=== PATIENT | female | born 2005 | race Caucasian/White ===

== ENCOUNTER 2024-08-07 17:26 | Emergency (ER) | payer BC, SELFPAY ==
[2024-08-07 17:36] VITALS: BP 113/74; PULSE 90; RESP 18; TEMP 36.6; O2SAT 100
--- NOTE | 2024-08-07 17:56 | ED.GENADULT ---
HPI - General Adult General Chief complaint: Dental/Oral Stated complaint: needs work note/tooth pain Source: patient Mode of arrival: ambulatory Limitations: no limitations History of Present Illness HPI narrative: Patient presents requesting a note to excuse her from work today. She woke up this morning with left upper dental pain which was causing ?migraine?. She called in sick to work. She states that her dental pain has improved as has her migraine. She is not looking for therapy for either of those complaints. She would simply like a note to excuse her from work. Related Data Home Medications Medication Instructions Recorded Confirmed No Home Medications 08/07/24 08/07/24 Allergies Allergy/AdvReac Type Severity Reaction Status Date / Time No Known Allergies Allergy Verified 08/07/24 17:43 Review of Systems Review of Systems: CONSTITUTIONAL: Denies fever, chills, or sweats. EYES: Denies visual changes, redness, or discharge. ENT: Reports left upper dental pain earlier, now resolved. Denies rhinorrhea, congestion, sore throat, or otalgia. CARDIOVASCULAR: Denies chest pain, palpitations, or edema. RESPIRATORY: Denies cough or dyspnea. GASTROINTESTINAL: Denies abdominal pain, nausea, vomiting, or diarrhea. GENITOURINARY: Denies dysuria or hematuria. SKIN: Denies rash or itching. MUSCULOSKELETAL: Denies back pain, joint pain, or myalgia. NEUROLOGIC: Reports headache earlier, now resolved. Denies numbness, dizziness, or weakness. PSYCHIATRIC: Denies anxiety or depression. PMFSH Past Medical History Medical History No pertinent past medical history Surgical History Surgical History No pertinent past surgical history Family History Family History Mother Family history non-contributory Social History Social History Substance use: never Gender identity (if verbalized by the patient): Female Spiritual care concerns: No Exam Narrative: GENERAL: Well-appearing, well-nourished, and in no acute distress. HEAD: Normocephalic, atraumatic. EYES: PERRLA and EOMI. ENT: Nares clear, no rhinorrhea or epistaxis. Mucous membranes moist. Oropharynx without tonsillar hypertrophy exudate or other lesions. Bilateral TMs pearly mendes nonbulging NECK: Supple. No adenopathy or masses. No carotid bruits or JVD CHEST: Clear to auscultation. No respiratory distress. No wheezes rales or rhonchi HEART: Regular rate and rhythm. No murmur heard. Normal peripheral pulses. ABDOMEN: Soft, nontender, nondistended, normal active bowel sounds. EXTREMITIES: Normal range of motion. No edema. SKIN: Warm, dry, no rash. NEURO: No focal deficits. Alert and oriented x3. PSYCH: Normal mood and affect. Course Course Emergency Course: This is a 18-year-old female who presented to obtain a note to excuse her from work today. She states her physical complaints have resolved. She is provided with a note and she should follow-up with her primary care provider. Patient in agreement with plan of care. Level of Care: Express Care Visit Vital Signs Vital signs: Vital Signs Temperature 36.6 C 08/07/24 17:36 Pulse Rate 90 08/07/24 17:36 Respiratory Rate 18 08/07/24 17:36 Blood Pressure 113/74 08/07/24 17:36 Pulse Oximetry 100 08/07/24 17:36 Oxygen Delivery Room Air 08/07/24 17:36 Temperature 36.6 C 08/07/24 17:36 Pulse Rate 90 08/07/24 17:36 Respiratory Rate 18 08/07/24 17:36 Blood Pressure 113/74 08/07/24 17:36 Pulse Oximetry 100 08/07/24 17:36 Oxygen Delivery Room Air 08/07/24 17:36 Medical Decision Making Vital Signs Vital Signs: Vital Signs Temperature 36.6 C 08/07/24 17:36 Pulse Rate 90 08/07/24 17:36 Respiratory Rate 18 08/07/24 17:36 Blood Pressure 113/74 08/07/24 17:36 Pulse Oximetry 100 08/07/24 17:36 Oxygen Delivery Room Air 08/07/24 17:36 Temperature 36.6 C 08/07/24 17:36 Pulse Rate 90 08/07/24 17:36 Respiratory Rate 18 08/07/24 17:36 Blood Pressure 113/74 08/07/24 17:36 Pulse Oximetry 100 08/07/24 17:36 Oxygen Delivery Room Air 08/07/24 17:36 Discharge Plan Discharge Clinical Impression: Encounter to obtain excuse from work Patient Disposition: Home, Self-Care Condition: Stable Instructions: Antibiotic Form, Toothache (ED) Patient Language: Trinidadian Prescriptions: No Action No Home Medications Follow-up/Referrals: Yogi Welch MD [Physician] - Stand Alone Forms: Work/School Release IP Time of Disposition: 17:56
== END 2024-08-07 18:00 | disposition home or self-care (01) ==
PROVIDERS: Emergency Provider Nurse Practitioner
DX: Z02.79 Encounter for issue of other medical certificate (principal)
CPT/HCPCS: 99202; G0463

== ENCOUNTER 2025-03-06 17:41 | Emergency (ER) | payer BC, SELFPAY ==
--- OUTSIDE RECORDS SUMMARY | 2025-03-06 17:48 | XMS_ITS | Referral Summary ---
Author Organization [address] Address [address] [place] [address] Care Team Providers Care Yard Goods Salesperson Name Role Phone Mana Swanson NP Primary Care Provider [phone] Sam Brannon MD Unavailable [phone] Allergies No known active allergies Medications docusate sodium (COLACE) 100 mg capsuleIndicati ons:constipatio n,Stool Softener Take 1 capsule (100 mg total) by mouth 2 (two) times a day as needed for constipation 30 capsule 1 4 Active ibuprofen (ADVIL,MOTRIN) 600 mg tabletIndicatio ns:Cramps Take 1 tablet (600 mg total) by mouth every 6 (six) hours as needed for pain 30 tablet 4 Active vit-iron fum-folic ac 27 mg iron- 800 mcg tabletIndicatio ns:Vitamin Deficiency Prevention Take 1 tablet by mouth daily 30 tablet 1 4 Active Active Problems Problem Noted Date Diagnosed Date Encounter for elective induction of labor 2022 37 weeks gestation of 09/20/2023 Social History Tobacco Use Types Packs/Day Years Used Date Smoking Tobacco: Never Passive Smoke Exposure: Never Smokeless Tobacco: Never Tobacco Cessation:Counseling Given: No [facility] Utilities Answer Date Recorded In the past 12 months has e [employer], gas, oil, or water company threatened to shut off services in your home? No 09/23/2023 Humiliation, Afraid, Rape, and Kick questionnair e Answer Date Recorded Within the last year, have y ou been afraid of your partner or ex-partner? No 09/23/2023 Within the last year, have y ou been humiliated or emotionally abused in other ways by your partner or ex-partner? No Within the last year, have y ou been kicked, hit, slapped, or otherwise physically hurt by your partner or ex-partner? No 09/23/2023 Within the last year, have y ou been raped or forced to have any kind of sexual activity by your partner or ex-partner? No 09/23/2023 Social Connection and Isolat ion Panel [NHANES] Answer Date Recorded In a typical week, how many times do you talk on the phone with family, friends, or neighbors? More than three times a week 09/23/2023 How often do you get togethe r with friends or relatives? Once a week 09/23/2023 How often do you attend chur ch or islam services? Never 09/23/2023 Do you belong to any clubs o r organizations such as mormonism groups, unions, fraternal or athletic groups, or school groups? No 09/23/2023 How often do you attend meet ings of the clubs or organizations you belong to? Never 09/23/2023 Are you , , di vorced, , never , or living with a partner? Never 09/23/2023 AUDIT-C Answer Date Recorded Q1: How often do you have a drink containing alcohol? Never 09/23/2023 Q2: How many drinks containi ng alcohol do you have on a typical day when you are drinking? Patient does not drink Q3: How often do you have si x or more drinks on one occasion? Never 09/23/2023 Overall Financial Resource Strain (CARDIA) Answe r Date Recorded How hard is it for you to pa y for the very basics like food, housing, medical care, and heating? Not hard at all 09/23/2023 PHQ-2 Answer Date Recorded PHQ-2 Total Score 0 09/23/2023 [facility] - Occupational Stress Questionnaire Answer Date Recorded Do you feel stress - tense, restless, nervous, or anxious, or unable to sleep at night because your mind is troubled all the time - these days? Not at all 09/23/2023 Exercise Vital Sign Answer Date Recorde d On average, how many days pe r week do you engage in moderate to strenuous exercise (like a brisk walk)? 3 days 09/23/2023 On average, how many minutes do you engage in exercise at this level? 40 min 09/23/2023 Hunger Vital Sign Answer Date Recorded Within the past 12 months, y ou worried that your food would run out before you got the money to buy more. Never true 09/23/19 24 Within the past 12 months, t he food you bought just didn't last and you didn't have money to get more. Never true 09/23/2023 PRAPARE - Transportation Answer Date Re corded In the past 12 months, has l ack of transportation kept you from medical appointments or from getting medications? No 10/2023 In the past 12 months, has l ack of transportation kept you from meetings, work, or from getting things needed for daily living? No 09/23/2023 Housing Stability Vital Sign Answer Kevin e Recorded In the last 12 months, was t here a time when you were not able to pay the mortgage or rent on time? No 09/23/2023 In the last 12 months, how many places have you lived? 1 09/23/2023 In the last 12 months, was t here a time when you did not have a steady place to sleep or slept in a long-term (including now)? No 09/23/2023 [place] Depression Scale Answer Date Recorded [place] Depression Scale Total 0 09/23/2023 The thought of harming myself has occurred to me . Never 09/23/2023 Personal Safety Answer Date Recorded Have you ever been in or are you currently in a harmful physical or emotional relationship or is someone making you feel afraid or unsafe? Denies 09/20/2023 Comments No Sex and Gender Information Value Date Recorded Sex Assigned at Not on file Legal Sex Female 2:47 PM CDT Gender Identity Not on file Sexual Orientation Not on file Last Filed Vital Signs Vital Sign Reading Time Taken Comments Blood Pressure 117/83 09/23/2023 4:43 PM SODA CLERK Pulse 98 09/23/2023 4:43 PM SODA CLERK Temperature 36.8 C (98.3 F) 09/23/2023 4:43 PM SODA CLERK Respiratory Rate 16 09/23/2023 4:43 PM SODA CLERK Oxygen Saturation 99% 09/22/2023 10:00 PM SODA CLERK Inhaled Oxygen Concentration - - Weight 78.9 kg (174 lb) 08/13/2023 11:14 AM SODA CLERK Height 165.1 cm (5' 5) 08/13/2023 11:14 AM SODA CLERK Body Mass Index 28.96 08/13/2023 11:14 AM SODA CLERK Plan of Treatment Not on file Insurance [facility] PLAN [facility] Advance Directives For more information, please contact: [phone] * Full Code (Latest Code Status on File) Date Activated Date Inactivated Comments 09/21/2023 2:56 AM 09/23/2023 10:28 PM Full CPR in case of cardiopulmonary arrest * Full Code Date Activated Date Inactivated Comments 09/21/2023 2:55 AM 09/21/2023 2:56 AM * Full Code Date Activated Date Inactivated Comments 09/20/2023 5:35 PM 09/21/2023 2:55 AM Full CPR i n case of cardiopulmonary arrest Care Teams Yard Goods Salesperson Relationship Specialty Start Date End Date Mana Swanson NP [address] [place] [address] PCP - General Nurse Practitioner 04/03/23 Sam Brannon MD [address] [place] [address] [address] [place] [address] Product Accountant Obstetrics and Gynecology 09/23/23
--- OUTSIDE RECORDS SUMMARY | 2025-03-06 17:48 | XMS_ITS | Clinical Summary ---
Author Organization [address] Address [address] [place] [address] Care Team Providers Care Wrapper Stitcher Name Role Phone Mana Swanson NP Primary Care Provider [phone] Sam Brannon MD Unavailable [phone] Allergies No known active allergies Medications docusate [...] Smokeless Tobacco: Never Tobacco Cessation:Counseling Given: No [facility] Utilities Answer Date Recorded In the past 12 months has e [employer], gas, oil, or water company threatened to [...] often do you attend chur ch or muslim services? Never 09/23/2023 Do you belong to any clubs o r organizations such as hindu groups, unions, fraternal or athletic groups, or [...] Date Recorded PHQ-2 Total Score 0 09/23/2023 [facility] - Occupational Stress [...] place to sleep or slept in a fci (including now)? No 09/23/2023 [place] Depression Scale Answer Date Recorded [place] Depression Scale Total 0 09/23/2023 The thought [...] on file Sexual Orientation Not on file Obstetrics History Para Term AB IAB SAB Ectopic Multiple Livin g Live Births 1 1 1 0 1 1 Date Outcome GA Total Labor Labor/2nd/3rd Weight Sex Type Anes PTL Jonna A1 A5 Name Clin 2022 Term 37w 6d 5h 41m 4h 55m/0h 44m/0h 02m 3.317 kg (7 lb 5 oz) M Vagina l Epidur al N Livin g 8 9 Jason Yesier o [place], [place] zamora MD Complications:None Delivery Location:[facility] Fac[facility]y ([facility]) Last Filed Vital Signs Vital Sign Reading Time Taken Comments Blood Pressure 117/83 09/23/2023 4:43 PM BELL CLERK Pulse 98 09/23/2023 4:43 PM BELL CLERK Temperature 36.8 C (98.3 F) 09/23/2023 4:43 PM BELL CLERK Respiratory Rate 16 09/23/2023 4:43 PM BELL CLERK Oxygen Saturation 99% 09/22/2023 10:00 PM BELL CLERK Inhaled Oxygen Concentration - - Weight 78.9 kg (174 lb) 08/13/2023 11:14 AM BELL CLERK Height 165.1 cm (5' 5) 08/13/2023 11:14 AM BELL CLERK Body Mass Index 28.96 08/13/2023 11:14 AM BELL CLERK Plan of Treatment Health Maintenance Due Date Last Done Comments Chlamydia and Gonorrhea (GC/ CT) Screening 2004 Hepatitis C Screening 2004 Meningococcal B Vaccine (2 o f 2 - Bexsero SCDM 2-dose series) 11/01/2021 05/01/2021 Regular Well Visit/Exam 18-64 2022 Depression Screening 09/23/2024 09/23/2023, 08/13/2023, 08/13/2023, Additional history exists Influenza Vaccine (Season Ended) 2025 DTaP/Tdap/Td Vaccine (7 - Td or Tdap) 05/21/2029 05/21/2019, 12/16/2008, 05/11/2007, Additional history exists Hepatitis B Screening Completed 06/16/2006 , 05/16/2006, 11/25/2005, Additional history exists Pneumococcal vaccine <65 Completed 006, 05/16/2006, 11/25/2005, Additional history exists Varicella Vaccines Completed 06/16/2006, 11/25/2005 HPV Vaccines Completed 05/01/2021, 05/21/2019 Meningococcal Vaccine Completed 05/01/2021, 019 Insurance [facility] PLAN [place] [id number] Advance Directives For more information, please contact: [phone] * Full Code (Latest Code Status on [...] n case of cardiopulmonary arrest Care Teams Wrapper Stitcher Relationship Specialty Start Date End Date Mana Swanson NP [address] [place] [address] [address] [place] [address] PCP - General Nurse Practitioner 04/03/23 Sam Brannon MD [address] [place] [address] [address] [place] [address] Section Plotter Operator Obstetrics and Gynecology 09/23/23
[2025-03-06 17:52] VITALS: BP 110/70; PULSE 91; RESP 20; TEMP 36.5; O2SAT 100
--- OUTSIDE RECORDS SUMMARY | 2025-03-06 17:52 | XMS_ITS | Clinical Summary ---
Author Organization [facility] Address [address] [place] [address] Phone Care Team Providers Care Information Manager Name Role Phone Provider, None Primary Care Provider Unavailabl e Allergies No known active allergies Medications naproxen (NAPROSYN) 500 MG Tablet Take 1 Tablet by mouth 2 times daily as needed for Moderate or more severe pain. 20 Tablet 03/01/2025 Active Encounters Date Type Department Care Team Description 03/01/2025 7:22 AM CDT - 03/01/2025 8:54 AM CDT Emergency [facility] Emergency [address] [place] [address] Casey Arreguin DO Chest pain Discharge Disposition: Discharged to home or Selfcare 03/01/2025 Travel from Last 3 Months Social History Tobacco Use Types Packs/Day Years Used Date Smoking Tobacco: Never Smokeless Tobacco: Never Tobacco Cessation:Counseling Given: Not Answered Comments Unknown Sex and Gender Information Value Date Recorded Sex Assigned at Not on file Legal Sex Female 8:52 PM CDT Gender Identity Not on file Sexual Orientation Not on file Last Filed Vital Signs Vital Sign Reading Time Taken Comments Blood Pressure 119/78 03/01/2025 8:45 AM CDT Pulse 78 03/01/2025 8:45 AM CDT Temperature 36.9 C (98.5 F) 03/01/2025 7:25 AM CDT Respiratory Rate 21 03/01/2025 8:45 AM CDT Oxygen Saturation 100% 03/01/2025 8:45 AM CDT Inhaled Oxygen Concentration - - Weight 78.5 kg (173 lb) 03/01/2025 7:25 AM CDT Height 160 cm (5' 3) 03/01/2025 7:25 AM CDT Body Mass Index 30.65 03/01/2025 7:25 AM CDT Plan of Treatment Health Maintenance Due Date Last Done Comments Hepatitis C Virus (HCV) Screening 2004 Meningococcal B Immunization (2 of 2 - Bexsero SCDM 2-dose series) 11/01/2021 05/01/2021 SARS-COV-2 Immunization ( - season) 2024 Influenza Immunization (Season Ended) 2025 Respiratory Syncytial Virus (RSV) Immunization (Adult) (1 - 1-dose 75+ series) 2079 Hepatitis B Immunization Completed 006, 11/25/2005, 01/15/2005, Additional history exists Pneumococcal Immunization Combined Aged Out 06/16/2006, 05/16/2006, 11/25/2005, Additional history exists No longer eligible based on patient's age to complete this topic TdaP Immunization Completed 05/21/2019 Human Papillomavirus (HPV) Immunization Completed 05/01/2021, 05/21/2019 Meningococcal Immunization (ACWY) Completed 05/01/2021, 05/21/2019 Rotavirus Immunization Aged Out No lo nger eligible based on patient's age to complete this topic Procedures Procedure Name Priority Date/Time Associated Diagnosis Comments XR CHEST SINGLE VIEW PORTABLE STAT 03/01/2025 7:44 AM CDT GOLD TOP TUBE STAT 03/01/2025 7:37 AM CDT BLUE TOP TUBE STAT 03/01/2025 7:37 AM CDT CBC WITH AUTO DIFFERENTIAL STAT 03/01/2025 7:37 AM CDT EXTRA TUBES STAT 03/01/2025 7:37 AM CDT TROPONIN I, HIGH SENSITIVITY (HSTRP) STAT 03/01/2025 7:37 AM CDT COMPLETE BLOOD COUNT (CBC) WITH DIFF STAT 03/01/2025 7:37 AM CDT CMP (COMPREHENSIVE METABOLIC PANEL) STAT 03/01/2025 7:37 AM CDT EKG 12 LEAD STAT 03/01/2025 7:23 AM CDT EKG SCAN 03/01/2025 12:00 AM CDT from Last 3 Months Results * XR CHEST SINGLE VIEW PORTABLE (03/01/2025 7:44 AM CDT) Anatomical Region Laterality Modality Chest N/A Digital Radiogra phy 03/01/2025 7:59 AM CDT Impressions 03/01/2025 8:02 AM CDT IMPRESSION: No acute cardiopulmonary abnormality. Narrative 03/01/2025 8:02 AM CDT EXAM DESCRIPTION: XR CHEST SINGLE VIEW PORTABLE REASON FOR STUDY: sob-mid chest pain radiating to right side and shoulder x 3 months TECHNIQUE: AP radiographic view(s) of the chest. COMPARISON: None FINDINGS: LUNGS: No focal opacity, pleural effusion, or pneumothorax. HEART/MEDIASTINUM: Cardiac silhouette normal in size. Mediastinal and hilar contours appear normal. LINES/TUBES: None. BONES: No acute osseous abnormality. THIS IS AN ELECTRONICALLY VERIFIED FINAL REPORT 03/01/2025 7:59 AM - Electronically signed by Rayne Hester M.D. TW: TW Report ID: [id number] Reading Location: [id number] Procedure Note Rayne Hester MD - 03/01/2025 EXAM DESCRIPTION: XR CHEST SINGLE VIEW PORTABLE REASON FOR STUDY: sob-mid chest pain radiating to right side and shoulder x 3 months TECHNIQUE: AP radiographic view(s) of the chest. COMPARISON: None FINDINGS: LUNGS: No focal opacity, pleural effusion, or pneumothorax. HEART/MEDIASTINUM: Cardiac silhouette normal in size. Mediastinal and hilar contours appear normal. LINES/TUBES: None. BONES: No acute osseous abnormality. THIS IS AN ELECTRONICALLY VERIFIED FINAL REPORT 03/01/2025 7:59 AM - Electronically signed by Rayne Hester M.D. TW: TW Report ID: [id number] Reading Location: [id number] IMPRESSION: No acute cardiopulmonary abnormality. us Casey Arreguin DO IMG DIAGNOSTIC ORDERABL ES Final Result * TROPONIN I, HIGH SENSITIVITY (HSTRP) (03/01/2025 7:37 AM CDT) TROPONIN I, HIGH SENSITIVITY- [facility] <3 <=14 ng/L 03/01/2025 8:21 AM CDT [facility] Comment: High-sensitivity troponin I results are reported in ng/L making the result appear to be 1,000 times higher than the contemporary troponin I value which is reported in ng/ml. Results from [facility]. Blood Venipuncture / Unknown 03/01/2025 7:37 AM CDT 03/01/2025 7:53 AM CDT Casey Arreguin DO CHEMISTRY ORDERABLES Fi nal Result [facility] [address] [place] [address] * Gold Top Tube (03/01/2025 7:37 AM CDT) Blood No Phlebotomy Charged / Unknown 03/01/2025 7:37 AM CDT 03/01/2025 7:54 AM CDT us Casey Arreguin DO CHEMISTRY ORDERABLES Fi nal Result [facility] [address] [place] [address] * Blue Top Tube (03/01/2025 7:37 AM CDT) Blood No Phlebotomy Charged / Unknown 03/01/2025 7:37 AM CDT 03/01/2025 7:54 AM CDT us Casey Balderas Rodríguez DO HEMATOLOGY ORDERABLES F inal Result [facility] [address] [place] [address] * (ABNORMAL) CBC with Auto Differential (03/01/2025 7:37 AM CDT) WBC 8.70 4.00 - 12.00 10(3)/mcL 03/01/2025 7:57 AM CDT [facility] RBC 4.36 3.80 - 5.30 10(6)/mcL 03/01/2025 7:57 AM CDT [facility] HEMOGLOBIN (HGB) 11.9(L) 12.0 - 15.8 g/dL 03/01/2025 7:57 AM CDT [facility] HEMATOCRIT (HCT) 37.1 36.0 - 47.0 % 03/01/2025 7:57 AM CDT [facility] MCV 85.1 82.0 - 96.0 fL 03/01/2025 7:57 AM CDT [facility] MCH 27.3 26.0 - 34.0 pg 03/01/2025 7:57 AM CDT [facility] MCHC 32.1 31.0 - 36.0 g/dL 03/01/2025 7:57 AM CDT [facility] PLATELET COUNT 272 140 - 440 10(3)/mcL 03/01/2025 7:57 AM CDT [facility] RDW 13.9 11.8 - 15.5 % 03/01/2025 7:57 AM CDT [facility] MPV 11.2 9.7 - 12.4 fL 03/01/2025 7:57 AM CDT [facility] NEUTROPHILS 49.4 47.0 - 73.0 % 03/01/2025 7:57 AM CDT [facility] LYMPHOCYTES 39.2 18.0 - 42.0 % 03/01/2025 7:57 AM CDT [facility] MONOCYTES 8.4 4.0 - 12.0 % 03/01/2025 7:57 AM CDT [facility] EOSINOPHILS 2.8 0.0 - 5.0 % 03/01/2025 7:57 AM CDT [facility] BASOPHILS 0.2 0.0 - 1.0 % 03/01/2025 7:57 AM CDT [facility] ABSOLUTE NEUTROPHILS 4.30 1.60 - 7.70 10(3)/mcL 03/01/2025 7:57 AM CDT [facility] ABSOLUTE LYMPHOCYTES 3.41(H) 1.30 - 3.20 10(3)/[facility] 03/01/2025 7:57 AM CDT [facility] ABSOLUTE MONOCYTES 0.73 0.20 - 1.00 10(3)/[facility] 03/01/2025 7:57 AM CDT [facility] ABSOLUTE EOSINOPHIL 0.24 0.00 - 0.40 10(3)/[facility] 03/01/2025 7:57 AM CDT [facility] ABSOLUTE BASOPHILS 0.02 0.00 - 0.10 10(3)/[facility] 03/01/2025 7:57 AM CDT [facility] NRBC PER 100 WBC 0 03/01/20 7:57 AM CDT [facility] Blood Venipuncture / Unknown 03/01/2025 7:37 AM CDT 03/01/2025 7:53 AM CDT us Casey Arreguin DO HEMATOLOGY ORDERABLES F inal Result [facility] [address] [place] [address] * (ABNORMAL) CMP (Comprehensive Metabolic Panel) (03/01/2025 7:37 AM CDT) SODIUM 138 136 - 145 mmol/L 03/01/2025 8:16 AM CDT [facility] POTASSIUM 3.4(L) 3.5 - 5.1 mmol/L 03/01/2025 8:16 AM CDT [facility] CHLORIDE 107 98 - 107 mmol/L 03/01/2025 8:16 AM CDT [facility] CO2, VENOUS 22 22 - 30 mmol/L 03/01/2025 8:16 AM CDT [facility] ANION GAP 12.4 <18.0 mmol/L 03/01/2025 8:16 AM CDT [facility] GLUCOSE 92 70 - 99 mg/dL 03/01/2025 8:16 AM CDT [facility] BUN 11 5 - 18 mg/dL 03/01/2025 8:16 AM CDT [facility] CREATININE, BLOOD 0.69 0.60 - 1.00 mg/dL 03/01/2025 8:16 AM CDT [facility] BUN/CREATININE RATIO 16 12 - 20 ratio 03/01/2025 8:16 AM CDT [facility] TOTAL PROTEIN 7.6 6.0 - 8.0 g/dL 03/01/2025 8:16 AM CDT [facility] ALBUMIN 4.6 3.5 - 5.0 g/dL 03/01/2025 8:16 AM CDT [facility] A/G RATIO 1.5 1.0 - 2.2 03/01/2025 8:16 AM CDT [facility] CALCIUM 9.2 8.7 - 10.5 mg/dL 03/01/2025 8:16 AM CDT [facility] T BILI 0.2 0.2 - 1.2 mg/dL 03/01/2025 8:16 AM CDT [facility] SGOT (AST) 18 <43 U/L 03/01/2025 8:16 AM CDT [facility] SGPT (ALT) 13 <56 U/L 03/01/2025 8:16 AM CDT [facility] ALKALINE PHOSPHATASE 78 40 - 150 U/L 03/01/2025 8:16 AM CDT [facility] GFR, ESTIMATED >60 >=60 03/01/2025 8:16 AM CDT [facility] Comment: Creatinine Clearance is the preferred criteria for selecting drug dose adjustments in renally impaired patients. The GFR is provided as additional pertinent clinical information. GFR is reported in mL/min/1.73 sq m. Calculation based on the Chronic Kidney Disease Epidemiology Collaboration (CKD- EPI) equation refit without adjustment for race. GFR, EST. >60 >=60 025 8:16 AM CDT [facility] GFR, EST. NONAFRICAN >60 >=60 03/01/2025 8:16 AM CDT [facility] Blood Venipuncture / Unknown 03/01/2025 7:37 AM CDT 03/01/2025 7:53 AM CDT us Casey Arreguin DO CHEMISTRY ORDERABLES Fi nal Result [facility] [address] [place] [address] * EKG 12 LEAD (03/01/2025 7:23 AM CDT) Ventricular Rate 83 BPM EXTERNAL EKG Atrial Rate 83 BPM EXTERNAL EKG P-R Interval 166 ms EXTERNAL EKG QRS Duration 78 ms EXTERNAL EKG Q-T Duration 362 ms EXTERNAL EKG QTC CALCULATION 425 ms EXTERNAL EKG P [place] 52 degrees EXTERNAL EKG R [place] 4 degrees EXTERNAL EKG T [place] 21 degrees EXTERNAL EKG 03/01/2025 7:23 AM CDT Impressions EXTERNAL EKG - 03/01/2025 9:36 PM CDT Normal sinus rhythm Normal ECG No previous ECGs available Confirmed by GLADYS RODRIGUEZ ([id number]) on 03/01/2025 9:36:18 PM Narrative Procedure Note Gladys Rodriguez MD - 03/01/2025 IMPRESSION: Normal sinus rhythm Normal ECG No previous ECGs available Confirmed by GLADYS RODRIGUEZ ([id number]) on 03/01/2025 9:36:18 PM us Casey Arreguin DO IMG ECG ORDERABLES Anita l Result EXTERNAL EKG * EKG SCAN (03/01/2025 12:00 AM CDT) 03/01/2025 us Provider Scan IMG ECG ORDERABLES Final Result RESULTING AGENCY from Last 3 Months Insurance MEDICAID BLUE [place]OSS [place] Care Teams Information Manager Relationship Specialty Start Date End Date Provider, None [place] PCP - General 03/01/25
--- NOTE | 2025-03-06 18:11 | ED.SKABFB ---
HPI - Skin/Abscess/Foreign Bdy General Chief complaint: Skin/Abscess/Foreign Body Stated complaint: nose piercing inf, facial swelling Source: patient Mode of arrival: ambulatory Limitations: no limitations History of Present Illness HPI narrative: 19 y/o female presented for c/o infection to her nose ring. Endorses pain and redness and a 'pus pocket' inside the left nostril surrounding the ring. Says she had swelling on the outer aspect of the nose yesterday, but she decided to go camping, and says it is better today. Nose ring was placed 8 months ago. Related Data Allergies Allergy/AdvReac Type Severity Reaction Status Date / Time No Known Allergies Allergy Verified 08/07/24 17:43 Review of Systems Review of Systems: CONSTITUTIONAL: Denies body aches, fever, chills, or sweats. EYES: Denies visual changes, redness, or discharge. ENT: Denies rhinorrhea, congestion CARDIOVASCULAR: Denies chest pain, palpitations, or edema. RESPIRATORY: Denies cough or dyspnea. GASTROINTESTINAL: Denies abdominal pain, nausea, vomiting, or diarrhea. SKIN: per HPI MUSCULOSKELETAL: Denies back pain, joint pain, or myalgia. NEUROLOGIC: Denies headache, numbness, tingling, or weakness. [facility] Past Medical History Medical History No pertinent past medical history Surgical History Surgical History No pertinent past surgical history Family History Family History Mother Family history non-contributory Social History Social History Substance use: never Gender identity (if verbalized by the patient): Female Spiritual care concerns: No Comments At time of signature, I have reviewed and agree with nursing past medical, surgical, social and family history unless otherwise noted. Please see nursing chart for further information. There is no relevant family history pertinent to the presenting complaint Exam Narrative: GENERAL: Well-appearing HEAD: Normocephalic, atraumatic. EYES: conjunctivae clear, and EOMI. ENT: left nare with nose ring in place, inner nare with pustule surrounding the ring. Ring is moveable freely. No active drainage. No nose/facial swelling or erythema. Mucous membranes moist. Oropharynx without edema, erythema or lesions. NECK: Supple. No lymphadenopathy CHEST: Clear to auscultation. HEART: Regular rate and rhythm. SKIN: Warm, dry. NEURO: Alert and oriented x3. Course Course Emergency Course: Patient is aware of diagnosis, understands and agrees to treatment plan. Anticipatory guidance given. Patient agrees to follow-up as directed and is aware of reasons to seek care at the emergency department. Portions of this record may have been created with voice recognition software Level of Care: Express Care Visit Vital Signs Vital signs: Vital Signs Temperature 97.7 F 03/06/25 17:52 Pulse Rate 91 03/06/25 17:52 Respiratory Rate 20 03/06/25 17:52 Blood Pressure 110/70 03/06/25 17:52 Pulse Oximetry 100 03/06/25 17:52 Oxygen Delivery Room Air 03/06/25 17:52 Temperature 97.7 F 03/06/25 17:52 Pulse Rate 91 03/06/25 17:52 Respiratory Rate 20 03/06/25 17:52 Blood Pressure 110/70 03/06/25 17:52 Pulse Oximetry 100 03/06/25 17:52 Oxygen Delivery Room Air 03/06/25 17:52 Reviewed MDM - Skin/Abscess/Foreign Bdy MDM Narrative Medical decision making narrative: Discussed physical exam findings; reviewed the [place] with pt. Will send abx and mupirocin. 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 Advised supportive measures and signs/symptoms to go to the ER at length. Pt is appropriate for outpt treatment and f/u. Differential Diagnosis Differential diagnosis: Likely abscess of skin or subcutaneous tissue, viral exanthem, dermatophytosis, urticaria, herpes zoster, cellulitis, eczema, insect bites, impetigo and contact dermatitis Discharge Plan Discharge Clinical Impression: Abscess of skin or subcutaneous tissue Patient Disposition: Home Condition: Stable Instructions: Antibiotic Form, Abscess (ED) Additional Instructions: Cleanse with warm soapy water Warm compresses at least 4 times a day to the site to help expel any additional drainage. Take antibiotic as directed. It can be harsh on the gut; recommend a probiotic such as Align, lactobacillus or Activia yogurt Use the ointment into the nose as directed Tylenol and ibuprofen every 8 hours for pain as needed Follow up with your primary care physician in 3 days for a wound check. 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
== END 2025-03-06 18:25 | disposition home or self-care (01) ==
PROVIDERS: Emergency Provider Nurse Practitioner Family
DX: J34.0 Abscess, furuncle and carbuncle of nose (principal)
CPT/HCPCS: 99213; G0463

== ENCOUNTER 2025-06-24 10:46 | Emergency (ER) | payer BC, SELFPAY ==
--- NOTE | 2025-06-24 10:48 | ED_ITS ---
HPI - URI/Sore Throat General Chief Complaint: Upper Respiratory Infection Stated Complaint: Sore Throat Time Seen by Provider: 06/24/25 10:48 Source: patient Mode of arrival: ambulatory Limitations: no limitations History of Present Illness HPI Narrative: Bethel is a 19-year-old female patient presenting to the clinic today with complaints a sore throat, fever, cough, nasal congestion, body aches, and chills. She reports her symptoms started with fever body aches and chills 1 week ago. Has developed a sore throat over the last few days. Rates pain 6/10 currently. Has taken cough drops for her symptoms. MD elicited complaint: sore throat and nasal congestion Related Data Home Medications ?Medication ?Instructions ?Recorded ?Confirmed ?Last Taken ?Type No Home Medications 06/24/25 06/24/25 U nknown History Allergies Allergy/AdvReac Type Severity Reaction Status Date / Time No Known Allergies Allergy Verified 06/24/25 11:03 Review of Systems Review of Systems: Pertinent positives per HPI. Patient denies any fever, chills, rash, headache, visual changes, dizziness, shortness of breath, chest pain, palpitations, nausea, vomiting, diarrhea, constipation, abdominal pain, or any urinary issues. [facility] Past Medical History Medical History No pertinent past medical history Surgical History Surgical History No pertinent past surgical history Family History Family History Mother Family history non-contributory Social History Social History Substance use: never Gender identity (if verbalized by the patient): Female Spiritual care concerns: No Comments At the time of my signature, I reviewed and agree with the nursing past medical, surgical, social, and family history. There is no relevant family history pertinent to the patient complaint. Exam Narrative: General: Well-developed, well nourished, in no apparent distress Head: Normocephalic, atraumatic Eyes: Pupils equally round and reactive to light bilaterally, EOM intact, sclera and conjunctive clear, no discharge, lids normal Ears: TMs intact and clear, ear canals clear, no drainage, grossly hearing normal. Nose: Nares patent, clear nasal discharge, no inflammation, no sinus tenderness. Mouth: Oral pharynx mildly red without lesions or masses, good dentition, MMM. Postnasal drip Neck: Supple, trachea midline, no enlargement of anterior or posterior cervical nodes, no thyroid masses or goiter palpable. Cardio: Regular rate and rhythm, s1 and s2 normal, no murmur appreciated. Resp: Clear to auscultation bilaterally, no rhonchi, rales, wheezing or rubs Course Course Emergency Course: Portions of this record may have been created with voice recognition software. Level of Care: Express Care Visit Vital Signs Vital signs: Vital Signs Temperature 36.6 C 06/24/25 10:53 Pulse Rate 106 H 06/24/25 10:53 Respiratory Rate 20 06/24/25 10:53 Blood Pressure 121/74 06/24/25 10:53 Pulse Oximetry 99 06/24/25 10:53 Oxygen Delivery Room Air 06/24/25 10:53 Temperature 36.6 C 06/24/25 10:53 Pulse Rate 106 H 06/24/25 10:53 Respiratory Rate 20 06/24/25 10:53 Blood Pressure 121/74 06/24/25 10:53 Pulse Oximetry 99 06/24/25 10:53 Oxygen Delivery Room Air 06/24/25 10:53 Vital signs reviewed MDM - URI/Sore Throat MDM Narrative Medical decision making narrative: At the time of visit patient is resting comfortably on the exam table. Patient appears to be nontoxic. Complaints a sore throat, fever, cough, nasal congestion, body aches, and chills. She reports her symptoms started with fever body aches and chills 1 week ago. Has developed a sore throat over the last few days. Rates pain 6/10 currently. Has taken cough drops for her symptoms. On exam patient has clear nasal drainage, bilateral TMs intact and clear, postnasal drip with mild oropharynx red, no cervical lymphadenopathy, lung sounds are clear and heart rates regular rate rhythm. Strep test was order. Labs: Strep test was performed and was negative in the clinic today. We will send strep for culture. Plan: I suspect patient has URI/pharyngitis. Supportive measures were discussed with the patient and they voiced understanding discharge instructions and agrees to treatment plan. Return precautions reviewed Differential Diagnosis Differential diagnosis: Likely upper respiratory infection, otitis media, sinusitis, viral infection, bronchitis, influenza, pharyngitis and other (COVID) Discharge Plan Discharge Clinical Impression: Pharyngitis Qualifiers: Pharyngitis/tonsillitis etiology: unspecified etiology Qualified Code(s): J02.9 - Acute pharyngitis, unspecified URI (upper respiratory infection) Qualifiers: URI type: unspecified URI Qualified Code(s): J06.9 - Acute upper respiratory infection, unspecified Patient Disposition: Home Condition: Stable Instructions: Antibiotic Form, Pharyngitis (ED), Cold Symptoms (ED) Additional Instructions: Strep test was negative in the clinic today. We will send strep for culture if this comes back positive we will contact you in place you on antibiotics at that time. May take DayQuil/NyQuil as per bottle directions for cold/flu symptoms Increase fluids and stay well hydrated May take Tylenol or motrin as directed on bottle for pain/fever May use Flonase 1 spray in each nare daily May take OTC antihistamines such as Zyrtec or Claritin daily as directed on b ottle May apply Vicks vapor rub to chest to open sinuses Sinus rinses for congestion Cepacol spray, cough drops, throat lozenges, warm tea with honey/lemon, gargle salt water to soothe throat BRAT diet for diarrhea Clear liquids x 24 hours then advance as tolerated for nausea/vomiting Go to the ED if you develop a worsening in your condition- high fever not controlled by Tylenol or Motrin, dehydration, weakness, lethargy, shortness of breath, or chest pain. Follow up with your PCP in 3-5 days if symptoms persist. Patient Language: Pashto Prescriptions: No Action No Home Medications Follow-up/Referrals: UNKNOWN,DOCTOR [Primary Care Provider] Stand Alone Forms: Work/School Release IP Time of Disposition: 11:09 Quality NIHSS Nursing Documentation ED NIHSS nursing documentation: reviewed/agree
[2025-06-24 10:53] VITALS: BP 121/74; PULSE 106; RESP 20; TEMP 36.6; O2SAT 99
--- OUTSIDE RECORDS SUMMARY | 2025-06-24 10:54 | XMS_ITS | Clinical Summary ---
Author Organization [facility] Address [address] [place] [address] Phone Care Team Providers Care Monitoring Coordinator Name Role Phone Provider, None Primary Care Provider Unavailabl e Allergies No known active allergies Medications naproxen (NAPROSYN) 500 MG Tablet Take 1 Tablet by mouth 2 times daily as needed for Moderate or more severe pain. 20 Tablet 03/01/2025 Active Social History Tobacco Use Types Packs/Day Years [...] - Bexsero SCDM 2-dose series) 11/01/2021 05/01/2021 Influenza Immunization (#1) 2025 SARS-COV-2 Immunization ( - season) 2025 Respiratory Syncytial Virus (RSV) Immunization (Adult) [...] on patient's age to complete this topic Insurance MEDICAID BLUE [place]OSS [place] Care Teams Monitoring Coordinator Relationship Specialty Start Date End Date Provider, None [place] PCP - General 03/01/25
--- OUTSIDE RECORDS SUMMARY | 2025-06-24 10:54 | XMS_ITS | Clinical Summary ---
Author Organization [address] Address [address] [place] [address] Care Team Providers Care Horticulture Worker Name Role Phone Mana Swanson NP Primary Care Provider [phone] Sam Brannon MD Unavailable [phone] Allergies No known active allergies Medications docusate [...] Smokeless Tobacco: Never Tobacco Cessation:Counseling Given: No [facility] Utilities Answer Date Recorded In the past 12 months has e [employer], gas, oil, or water company threatened to [...] or ex-partner? No 09/23/2023 Social Connection and Isolation Panel Answer Date Recorded In a typical week, how many times do you talk on the phone with family, friends, or neighbors? More than three times a week 09/23/2023 How often do you get togethe r with friends or relatives? Once a week 09/23/2023 How often do you attend chur or shinto services? Never 09/23/2023 Do you belong to any clubs o r organizations such as taoism groups, unions, fraternal or athletic groups, or [...] Date Recorded PHQ-2 Total Score 0 09/23/2023 [facility] [place] of Occupat ional Health - Occupational Stress [...] place to sleep or slept in a assisted (including now)? No 09/23/2023 Center Depression Scale Answer Date Recorded Center Depression Scale Total 0 09/23/2023 The thought [...] al N Livin g 8 9 Jason Diner o [place], Israel zamora MD Complications:None Delivery Location:This Facil ity ([facility]) Last Filed Vital Signs Vital Sign Reading Time Taken Comments Blood Pressure 117/83 09/23/2023 4:43 PM [employer] ADMINISTRATOR Pulse 98 09/23/2023 4:43 PM [employer] ADMINISTRATOR Temperature 36.8 C (98.3 F) 09/23/2023 4:43 PM [employer] ADMINISTRATOR Respiratory Rate 16 09/23/2023 4:43 PM [employer] SYSTEM ADMINISTRATOR Oxygen Saturation 99% 09/22/2023 10:00 PM [employer] ADMINISTRATOR Inhaled Oxygen Concentration - - Weight 78.9 kg (174 lb) 08/13/2023 11:14 AM [employer] SYSTEM ADMINISTRATOR Height 165.1 cm (5' 5) 08/13/2023 11:14 AM [employer] SYSTEM ADMINISTRATOR Body Mass Index 28.96 08/13/2023 11:14 AM [employer] SYSTEM ADMINISTRATOR Plan of Treatment Health Maintenance Due Date Last Done Comments Chlamydia and Gonorrhea (GC/ CT) Screening 2004 Hepatitis C Screening 2004 Meningococcal B Vaccine (2 o f 2 - Bexsero SCDM 2-dose series) 11/01/2021 05/01/2021 Regular Well Visit/Exam 18-64 2022 Depression Screening 09/23/2024 09/23/2023, 08/13/2023, 08/13/2023, Additional history exists Influenza Vaccine (#1) 2025 DTaP/Tdap/Td Vaccine (7 - Td or Tdap) 05/21/2029 05/21/2019, 12/16/2008, 05/11/2007, Additional history exists Hepatitis B Screening Completed 06/16/2006 , 05/16/2006, 11/25/2005, Additional history exists Pneumococcal vaccine <65 Completed 006, 05/16/2006, 11/25/2005, Additional history exists Varicella Vaccines Completed 06/16/2006, 11/25/2005 HPV Vaccines Completed 05/01/2021, 05/21/2019 Meningococcal Vaccine Completed 05/01/2021, 019 Insurance [facility] Advance Directives For more information, please contact: [phone] * Full Code (Latest Code Status on [...] n case of cardiopulmonary arrest Care Teams Horticulture Worker Relationship Specialty Start Date End Date Mana Swanson NP [address] [place] [address] [address] [place] [address] PCP - General Nurse Practitioner 04/03/23 Sam Brannon MD [address] [place] [address] [address] [place] [address] Financial Aid Advisor Obstetrics and Gynecology 09/23/23
[2025-06-24 11:11] LABS: EDSTREPNEGPOS1 Negative (Negative)
== END 2025-06-24 11:13 | disposition home or self-care (01) ==
PROVIDERS: Emergency Provider Nurse Practitioner Family
DX: J02.9 Acute pharyngitis, unspecified (principal); J06.9 Acute upper respiratory infection, unspecified
CPT/HCPCS: 87081; 87880; 99213; G0463